=== PATIENT | male | born 1940 | race Caucasian/White ===

== ENCOUNTER 2022-06-08 00:23 | Inpatient (IN) | payer OTHER ==
[~2022-06-08] VITALS: Ht 170.2 cm; Wt 70.8 kg
[2022-06-08] MEDS ORDERED: NIFEDIPINE ER30 MG PO (04:58)
[2022-06-08] MEDS ORDERED: ALDACTONE 25MG25 MG PO (04:59)
[2022-06-08] MEDS ORDERED: COREG 25MG TAB25 MG PO (05:00)
[2022-06-08] MEDS ORDERED: HYDRALAZINE HC100 MG PO (05:00)
[2022-06-08] MEDS ORDERED: CATAPRES 0.1MG0.1 MG PO (05:00)
[2022-06-08] MEDS ORDERED: VITAMIN D250 MCG PO (05:01)
[2022-06-08] MEDS ORDERED: JARDIANCE10 MG PO (09:45)
[2022-06-08] MEDS ORDERED: TORSEMIDE10 MG PO (09:45)
[2022-06-09] MEDS ORDERED: LOKELMA5 GM PO (10:44)
[2022-06-09] MEDS ORDERED: HYDRALAZINE HCL50 MG PO (10:46)
[2022-06-09] MEDS ORDERED: ASPIRIN EC81 MG PO (10:46)
[2022-06-13 14:11] LABS: FERRITIN 133 ng/mL (30-400); IRON BIND.CAP.(TIBC) 191 ug/dL (250-450); IRON SATURATION 17 % (15-55); IRON, SERUM 32 ug/dL (38-169); UIBC 159 ug/dL (111-343)
== END 2022-06-09 11:57 | disposition home or self-care (01) | DRG 641 ==
LOC: PROG CARE 00:23 → CDU 02:45 → PROG CARE 02:45 → CDU 02:45 → PROG CARE 02:45
PROVIDERS: Internal Medicine; Internal Medicine Nephrology; ADMIT Internal Medicine
DX: E87.6 Hypokalemia (principal); N18.4 Chronic kidney disease, stage 4 (severe); R09.89 Other specified symptoms and signs involving the circulatory and respiratory systems; I12.9 Hypertensive chronic kidney disease with stage 1 through stage 4 chronic kidney disease, or unspecified chronic kidney disease; Z79.01 Long term (current) use of anticoagulants; Z79.82 Long term (current) use of aspirin; Z98.890 Other specified postprocedural states
CPT/HCPCS: 80048; 82728; 82803; 83540; 83550; 93005; 93880; J1644; J7070